=== PATIENT | female | born 1990 | race Two or more races ===

== ENCOUNTER 2017-10-05 16:55 | Observation (INO) | payer MEDICAID ==
[2017-10-05] MEDS ORDERED: LACTATED RINGER'S 1,000 ML IV ONE (17:45)
== END 2017-10-05 19:23 | disposition home or self-care (01) | DRG 566 ==
LOC: LDRP 16:55
PROVIDERS: ADMIT Obstetrics & Gynecology; ATTEND Obstetrics & Gynecology
DX: O62.9 Abnormality of forces of labor, unspecified (principal); O26.893 Other specified pregnancy related conditions, third trimester; M54.5 Low back pain; Z3A.32 32 weeks gestation of pregnancy
CPT/HCPCS: 59025; 81002; G0378; 96361; 96366

== ENCOUNTER → 2018-03-05 | Emergency (ER) | payer MEDICAID | END | disposition home or self-care (01) | LOC: ER 21:36 | DX: M54.9 Dorsalgia, unspecified (principal); Z53.21 Procedure and treatment not carried out due to patient leaving prior to being seen by health care provider ==